=== PATIENT | female | born 1990 | race Hispanic/Latino ===

== ENCOUNTER 2017-09-06 22:13 | Emergency (ER) | payer SELFPAY ==
[2017-09-06] MEDS ORDERED: NARCAN 2 MG/2 ML IV ONE (22:46)
[2017-09-06] MEDS ORDERED: ZOFRAN IV ONE (22:48)
[2017-09-06 23:05] LABS: Hematocrit 42.4 % (30.3-42.9); Hemoglobin 14.2 gm/dl (10.1-14.3); Mean Corpuscular HGB Conc 33 % (30-34); Mean Corpuscular Hemoglobin 29 pg (28-32); Mean Corpuscular Volume 88 fl (79-97); Platelet Count 346 K/mm3 (140-440); Red Blood Count 4.85 M/mm3 (3.65-5.03); Red Cell Distribution Width 13.7 % (13.2-15.2)
[2017-09-06 23:25] LABS: Alanine Aminotransferase 22 units/L (7-56); Albumin 4.4 g/dL (3.9-5); BUN/Creatinine Ratio 24; Blood Urea Nitrogen 17 mg/dL (7-17); Calcium 9.6 mg/dL (8.4-10.2); Hemolysis Index 1
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
[2017-09-07] MEDS ORDERED: VALIUM IV ONE (00:54)
[2017-09-07] MEDS ORDERED: AMIDATE IV ONE (00:54)
[2017-09-07] MEDS ORDERED: ZOFRAN IV ONE (01:06)
[2017-09-07] MEDS ORDERED: SUBLIMAZE ONE (01:20)
[2017-09-07] MEDS ORDERED: SUBLIMAZE IV ONE (01:28)
[2017-09-07] MEDS ORDERED: GEODON IM ONE (01:30)
[2017-09-07] MEDS ORDERED: VERSED IV ONE ×2 (01:44→02:00)
[2017-09-07 02:15] LABS: Band Neutrophils # (Manual) 0.2 K/mm3; Basophils % (Manual) 0 % (0.0-1.8); Eosinophils % (Manual) 0 % (0.0-4.3); Total Cells Counted 100
[2017-09-07 02:16] LABS: Platelet Estimate Consistent w Auto; RBC Morphology Normal
--- NOTE | 2017-09-07 03:08 | Cat Scan Report ---
FINAL REPORT PROCEDURE: CT FACIAL BONES WO CON TECHNIQUE: Computerized tomography of the facial bones and soft tissues with axial and coronal sections performed from the cranial aspect of the frontal sinuses to the caudal portion of the mandible without contrast material. HISTORY: post reduction COMPARISON: 09/06/2017 FINDINGS: Bones: No significant abnormality. Paranasal sinuses: Clear. Soft tissues: No significant abnormality. Other: None. IMPRESSION: Successful reduction of temporomandibular joints. There are no fractures.
[2017-09-07 03:13] VITALS: BP 113/65
== END 2017-09-07 03:43 | disposition home or self-care (01) ==
LOC: ED 22:13
DX: S03.02XA Dislocation of jaw, left side, initial encounter (principal); S09.90XA Unspecified injury of head, initial encounter; F17.200 Nicotine dependence, unspecified, uncomplicated; Y04.8XXA Assault by other bodily force, initial encounter; Y93.89 Activity, other specified; Y92.89 Other specified places as the place of occurrence of the external cause; Y99.8 Other external cause status
CPT/HCPCS: 21480; 36415; 70450; 70486; 72125; 80053; 82962; 84703; 85007; 85025; 96374; 96375; 99284; G0480; J2250; J2310; J2405; J3010; 80320; J3486